=== PATIENT | female | born 1980 | race Caucasian/White ===

== ENCOUNTER 2024-02-13 12:32 | Emergency (ER) | payer MEDICAID | END 2024-02-13 12:53 | disposition home or self-care (01) | LOC: ERS 12:32 | DX: L03.115 Cellulitis of right lower limb (principal); I10 Essential (primary) hypertension; E11.9 Type 2 diabetes mellitus without complications; F17.210 Nicotine dependence, cigarettes, uncomplicated; E78.00 Pure hypercholesterolemia, unspecified; Z79.899 Other long term (current) drug therapy | CPT/HCPCS: 99283 ==